=== PATIENT | female | born 1960 | race Caucasian/White ===

== ENCOUNTER 2018-01-28 09:23 | Observation (INO) | payer BC ==
[2018-01-28] VITALS (11 sets, daily range): BP systolic 95–104; BP diastolic 62–70; PULSE 63–90; TEMP 97.8–100.1
[~2018-01-28] VITALS: Ht 172.7 cm; Wt 65.7 kg
[2018-01-28] MEDS ORDERED: LEXAPRO 10MG10 MG PO (10:02)
[2018-01-28] MEDS ORDERED: AMBIEN 5MG TABLE5 MG PO (10:03)
[2018-01-28] MEDS ORDERED: CLARITIN 1010 MG/TAB PO (10:03)
[2018-01-28 10:15] LABS: BASO % 0.2 % (0.0-2.0); EOS % 0.1 % (0-4.0); GRAN # 16.6 (1.4-6.5); GRAN % 89.6 % (42.2-75.2); HEMATOCRIT 40.4 % (37.0-47.0); HEMOGLOBIN 13.6 g/dl (12.5-16.0); LYMPH % 5.6 % (20.0-51.0); MEAN CELL VOLUME 94 fl (80.0-100.0); MEAN CORPUSCULAR HEMOGLOBIN 32 pg (27.0-31.0); MEAN CORPUSCULAR HGB CONC 34 g/dl (33.0-37.0); MEAN PLATELET VOLUME 9.8 fl (7.4-10.4); MONO # 0.7 (0.1-0.6); MONO % 3.9 % (1.7-9.3); PLATELET COUNT 287 K/mm3 (130-400); RED BLOOD COUNT 4.28 M/mm3 (4.10-5.30); REDCELL DISTRIBUTION WIDTH-CV 12.2 % (11.5-14.5)
[2018-01-28 10:26] LABS: ALBUMIN 4.3 gm/dL (3.5-5.0); CALCIUM 9.5 mg/dL (8.4-10.2); CREATININE, serum 0.93 mg/dL (0.52-1.25); POTASSIUM 3.5 mmol/L (3.4-5.0); TOTAL PROTEIN 7.8 gm/dL (6.4-8.2)
[2018-01-28 10:40] LABS: C-REACTIVE PROTEIN 26.2 mg/dL (0.0-0.9)
[2018-01-28 11:51] LABS: COLLECTION METHOD CLEAN CATCH
[2018-01-28 11:59] LABS: MUCOUS Present /lpf; PH 6 (5-8); SQUAMOUS EPITHELIAL 0-2 /hpf; URINE APPEARANCE Clear; URINE BACTERIA None Seen /hpf; URINE BILIRUBIN Negative (NEGATIVE); URINE BLOOD Negative (NEGATIVE); URINE COLOR Yellow; URINE GLUCOSE Negative (NEGATIVE); URINE KETONE 1+ (NEGATIVE); URINE LEUKOCYTE ESTERASE Negative (NEGATIVE); URINE NITRATE Negative (NEGATIVE); URINE PROTEIN(semi-quant) 1+ (NEGATIVE); URINE RBC 0-2 /hpf; URINE UROBILINOGEN Negative (NEGATIVE)
[2018-01-29 03:51] VITALS: BP 98/62; PULSE 59; TEMP 98.1
[2018-01-29 06:11] LABS: MEAN CELL VOLUME 98 fl (80.0-100.0); MEAN CORPUSCULAR HGB CONC 32 g/dl (33.0-37.0); MEAN PLATELET VOLUME 10.5 fl (7.4-10.4); PLATELET COUNT 236 K/mm3 (130-400); RED BLOOD COUNT 3.46 M/mm3 (4.10-5.30); REDCELL DISTRIBUTION WIDTH-CV 12.5 % (11.5-14.5)
[2018-01-29 06:19] LABS: HEMATOCRIT 33.9 % (37.0-47.0); MEAN CORPUSCULAR HEMOGLOBIN 32 pg (27.0-31.0)
[2018-01-29 06:25] LABS: CALCIUM 8.5 mg/dL (8.4-10.2); CREATININE, serum 0.74 mg/dL (0.52-1.25); POTASSIUM 4.1 mmol/L (3.4-5.0)
[2018-01-29 07:03] LABS: BAND 28 % (0-10); LYMPHOCYTE 3 % (20.0-51.0); NEUTROPHILS 64 % (42.0-75.2); PLATELET ESTIMATE NORMAL (NORMAL)
[2018-01-29 07:32] VITALS: BP 93/65; PULSE 66; TEMP 97.6
[2018-01-29 11:34] VITALS: BP 100/62; PULSE 70; TEMP 97.5
[2018-01-29 15:33] VITALS: BP 109/70; PULSE 65; TEMP 98.4
[2018-01-29 19:39] VITALS: BP 127/71; PULSE 73; TEMP 98.2
[2018-01-30 02:33] VITALS: BP 124/81; PULSE 76; TEMP 98.1
[2018-01-30 07:10] LABS: BASO % 0.1 % (0.0-2.0); EOS # 0.1 (0.0-0.7); EOS % 0.4 % (0-4.0); GRAN # 14.2 (1.4-6.5); GRAN % 87.3 % (42.2-75.2); HEMOGLOBIN 10.8 g/dl (12.5-16.0); LYMPH # 1.1 (1.2-3.4); LYMPH % 6.9 % (20.0-51.0); MEAN CELL VOLUME 98 fl (80.0-100.0); MEAN CORPUSCULAR HEMOGLOBIN 32 pg (27.0-31.0); MEAN CORPUSCULAR HGB CONC 32 g/dl (33.0-37.0); MEAN PLATELET VOLUME 11.1 fl (7.4-10.4); MONO # 0.8 (0.1-0.6); MONO % 4.8 % (1.7-9.3); PLATELET COUNT 274 K/mm3 (130-400); RED BLOOD COUNT 3.41 M/mm3 (4.10-5.30); REDCELL DISTRIBUTION WIDTH-CV 12.4 % (11.5-14.5)
[2018-01-30 07:28] LABS: HEMATOCRIT 33.4 % (37.0-47.0)
[2018-01-30 07:56] VITALS: BP 133/81; PULSE 75; TEMP 98.4
== END 2018-01-30 11:25 | disposition home or self-care (01) ==
LOC: COL.ER 09:23 → MEDICAL 12:15
PROVIDERS: Emergency Medicine; Surgery
DX: K35.32 Acute appendicitis with perforation, localized peritonitis, and gangrene, without abscess (principal); F32.9 Major depressive disorder, single episode, unspecified; J45.909 Unspecified asthma, uncomplicated; F41.9 Anxiety disorder, unspecified; Z90.49 Acquired absence of other specified parts of digestive tract; Z88.0 Allergy status to penicillin
CPT/HCPCS: G0008; J0330; J1100; J1170; J1885; J2250; J2405; J2543; J2704; J2710; J2795; J3010; J7030; J7042; J7120; Q9967

== ENCOUNTER 2023-01-05 17:21 | Emergency (ER) | payer SELFPAY ==
[~2023-01-05] VITALS: Ht 172.7 cm; Wt 65.0 kg
[~2023-01-05 17:21] MED LIST: AMBIEN 5MG TABLE5 MG PO; CLARITIN 1010 MG/TAB PO; LEXAPRO 10MG10 MG PO
[2023-01-05 19:06] VITALS: BP 138/92; PULSE 64; TEMP 98.1
== END 2023-01-05 19:06 | disposition home or self-care (01) ==
LOC: COL.ER 17:21
DX: S01.112A Laceration without foreign body of left eyelid and periocular area, initial encounter (principal); W01.10XA Fall on same level from slipping, tripping and stumbling with subsequent striking against unspecified object, initial encounter